=== PATIENT | male | born 1985 | race Caucasian/White ===

== ENCOUNTER 2021-03-02 02:05 | Outpatient (CLI) | payer MEDICAID, SELFPAY ==
[2021-03-03 13:09] LABS: COVID-19 RT-PCR UVMMC Result Negative (Negative)
== END 2021-03-02 02:06 | disposition home or self-care (01) ==
PROVIDERS: PCP Internal Medicine; Visit Provider Family Medicine
DX: Z20.822 Contact with and (suspected) exposure to COVID-19 (principal)
CPT/HCPCS: U0003

== ENCOUNTER 2021-09-16 13:25 | Outpatient (REF) | payer MEDICAID, SELFPAY ==
[2021-09-17 11:22] LABS: COVID-19 RT-PCR UVMMC Result Negative (Negative)
== END 2021-09-16 13:26 | disposition home or self-care (01) ==
LOC: NCHCN 13:25
PROVIDERS: PCP Internal Medicine; Visit Provider Family Medicine
DX: Z20.822 Contact with and (suspected) exposure to COVID-19 (principal)
CPT/HCPCS: U0003

== ENCOUNTER 2021-10-20 13:26 | Outpatient (REF) | payer MEDICAID, SELFPAY ==
[2021-10-21 16:59] LABS: COVID-19 RT-PCR UVMMC Result Negative (Negative)
== END 2021-10-20 13:27 | disposition home or self-care (01) ==
LOC: NCHCN 13:26
PROVIDERS: PCP Internal Medicine; Visit Provider Family Medicine
DX: Z20.822 Contact with and (suspected) exposure to COVID-19 (principal)
CPT/HCPCS: U0003

== ENCOUNTER 2023-11-13 15:10 | Emergency (ER) | payer MEDICAID, SELFPAY ==
[2023-11-13 15:15] VITALS: BP 154/97; PULSE 106; RESP 18; TEMP 36.5; O2SAT 98
--- NOTE | 2023-11-13 15:30 | DI.CT_ITS ---
Exam(s) CT CHEST/ABD/PEL W EXAM: CT CHEST/ABD/PEL W CLINICAL HISTORY: trauma right side pain to ribs and flank. TECHNIQUE: Imaging Protocol: Axial computed tomography images with coronal and sagittal reformatted images were created and reviewed CONTRAST MATERIAL: Intravenous: Omnipaque 350 Contrast volume:100 ml Oral: None COMPARISON: No exams were available for comparison FINDINGS: CHEST: LUNGS: No evidence of lung contusion or pleural effusion nor pneumothorax. No infiltrates. No omino us pulmonary nodules. No findings in the trachea and mainstem bronchi.. MEDIASTINUM: No evidence of sternal fracture or mediastinal hematoma. No hilar nor mediastinal adeno robbin. Partially visualized thyroid unremarkable. CARDIAC: Heart size is normal. There is no pericardial effusion.Thoracic aorta is intact. Normal si ze. No dissection. OSSEOUS: No clavicle fractures. Mild deformity of the lateral aspect of the right 5th rib noted whic h is probably a nonacute nondisplaced rib fracture. No other rib findings. However, there are multi ple right-sided transverse process fractures in the lumbosacral spine involving the right transverse process is of L1, L2, L3, and L4 with all of these being displaced. There are no fractures of the le ft transverse process is nor the pedicles and vertebral bodies nor other pelvic fractures identified. There is no prominent hematoma in this region.. ABDOMEN: No evidence of ascites, bowel wall nor mesenteric hematoma. No free fluid. LIVER: Normal size. No laceration. GALLBLADDER/BILIARY: No obvious gallbladder pathology. CBD is not dilated. PANCREAS: No evidence of pancreatic mass nor dilatation of the pancreatic duct. SPLEEN: Normal size. No laceration. Splenic and portal veins are patent. ADRENALS: There are no significant adrenal masses. KIDNEYS: No evidence of renal lacerations. No evidence of subcapsular hematoma on either side. No c alculi nor hydronephrosis. There is a solitary small benign posterior cortical cyst in the left kidn ey which measures 9 millimeters. This does not require imaging workup.. No cysts evident. ABDOMINAL AORTA: Abdominal aorta and aortoiliac segments are intact-patent. No dissection. No aneur ysms. LYMPH NODES: There is no retroperitoneal nor paraaortic adenopathy. ABDOMINAL WALL: No significant bruising in the subcutaneous fat and no fluid collections evident in t he subcutaneous fat. GI: There is no evidence of bowel obstruction.No evidence of bowel wall hematoma nor mesenteric hemat miley. PELVIS: LYMPH NODES: There is no intrapelvic nor inguinal adenopathy. GI: No evidence of appendicitis.No evidence of sigmoid diverticulitis. URINARY BLADDER: Intact. No extravasation. No intraluminal clots. Not significantly distended. REPRODUCTIVE: Prostate and seminal vesicles unremarkable. OSSEOUS: No hip fractures nor pubic rami fractures. No sacral fractures. SI joints unremarkable. IMPRESSION: 1. The main finding here are multiple displaced fractures of the right transverse processes of the L1 , L2, and L3 vertebral bodies. No large hematoma. No organ injuries. No ascites. No mesenteric he matomas no other acute fractures evident. Called by myself to ER physician. RADIATION DOSE DELIVERED: 1,288.97mGy.cm Total DLP DATA REPOSITORY: All CT scans at this facility are submitted to the National Radiology Data Registry (NRDR) Dose Index Registry (DIR) with the [employer] (A[employer]). RADIATION OPTIMIZATION: All CT scans at this facility use at least one of these dose optimization te chniques: automated exposure control; mA and/or kV adjustment per patient size (includes targeted exa ms where dose is matched to clinical indication); or iterative reconstruction.
--- NOTE | 2023-11-13 15:43 | W.ED.GENAD ---
HPI General Stated Complaint: FlankPain ROBERT: 4 Date/Time Provider Initiated Documentation: 11/13/23 15:23. HPI Narrative: 38-year-old male presents for evaluation of right flank pain. Patient states that he fell last night hitting his right side against bulkhead. He is pending having pain to his right lower ribs and right flank since that time. He denies hitting his head or losing consciousness. He has significant pain with movement and taking a deep breath. Denies any hemoptysis. No echo hematuria. No dysuria increased urinary frequency. No numbness or tingling to his extremities. No weakness in the extremities. He is not on any blood thinners. No chest pain or shortness of breath. No loss of bowel or bladder function. No saddle anesthesia. Related Data Home Medications Medication Instructions Recorded Confirmed cyclobenzaprine 10 mg tablet 10 mg PO TID PRN #30 tabs 11/13/23 oxycodone-acetaminophen 5 mg-325 1 tab PO Q6H PRN #14 tabs 11/13/23 mg tablet (Percocet) Previous Rx's Medication Instructions Recorded cyclobenzaprine 10 mg tablet 10 mg PO TID PRN #30 tabs 11/13/23 oxycodone-acetaminophen 5 mg-325 1 tab PO Q6H PRN #14 tabs 11/13/23 mg tablet (Percocet) Allergies Allergy/AdvReac Type Severity Reaction Status Date / Time No Known Allergies Allergy Unverified 11/13/23 15:18 Review of Systems Narrative: Remainder of review of systems otherwise negative except as noted in HPI x 10. PFSH All Active Problems (Updated 11/13/23 @ 18:43 by Joleen Barr MD) Closed fracture of transverse process of lumbar vertebra (Acute) Acute right flank pain (Acute) Social History Smoking/Tobacco Use Status: Current every day Smoking risk assessment performed?: Yes Alcohol Intake: current Alcohol Intake frequency: holidays/special occasions only Drug use: Never Substance use type: does not use Do you feel safe at home: Yes Do you feel safe in your relationship?: Yes PAWSS Have you Been Recently Intoxicated or Drunk Within the Last 30 days?: No Have you Ever Experienced Previous Episodes of Alcohol Withdrawal?: No Have you ever Experienced Withdrawal Seizures?: No Have you ever Experienced Delirium Tremens(DT)s?: No Have you ever undergone Alcohol Rehabilitation Treatment (i.e, inpt ot outpatient treatment programs)?: No Have you ever Experienced Blackouts?: No Have you ever Combined Alcohol with other Downers within the last 90 days?: No Have you ever Combined Alcohol with any other Substance of Abuse during the last 90 days?: No Positive Blood Alcohol level on Presentation? [PCS.BAL]: No Evidence of Increased Autonomic Activity (i.e. HR>120, tremor, sweating, agitation, nausea)?: No Result: 0 Exam Narrative Exam Narrative: General: non-toxic, no respiratory distress, comfortable HEENT: normocephalic, atraumatic, lids and lashes normal, PERRL, EOMI, anicteric sclera, no conjunctival injection, moist oral mucosa Neck: No vertebral tenderness Card: regular rate and rhythm, S1S2, no murmurs, rubs, or gallops Lungs: good air entry, clear to auscultation bilaterally. no wheezes, rales, rhonchi, or retractions, pain palpation right lower ribs, no crepitus Abd: soft, non-tender, non-distended, normal bowel sounds, no rebound or guarding, no peritoneal signs, right flank pain, right CVAT Musculoskeletal: No vertebral tenderness, GCS 15, speech normal, sensation intact, full range of motion of arms and legs, no tenderness to palpation. no clubbing, cyanosis, or edema Back exam: + Right lumbosacral paraspinal tenderness, no mid-line tenderness, normal strength & sensation, negative SLR's, DTR's 2+ bilaterally Neurologic: appropriate for age, strength normal Psych: alert and oriented Skin: no petechiae, no lesions, warm and dry Course Vital Signs Vital signs: Vital Signs Temperature 36.5 C 11/13/23 15:15 Pulse 106 H 11/13/23 15:15 Respiratory Rate 18 11/13/23 15:15 Blood Pressure 154/97 H 11/13/23 15:15 Pulse Oximetry 98 11/13/23 15:15 Temperature 36.5 C 11/13/23 15:15 Temperature Source Temporal Artery Scan 11/13/23 15:15 Pulse 106 H 11/13/23 15:15 Respiratory Rate 18 11/13/23 15:15 Respiratory Effort Normal, Non-Labored 11/13/23 15:19 Blood Pressure 154/97 H 11/13/23 15:15 Blood Pressure Position Sitting 11/13/23 15:15 Pulse Oximetry 98 11/13/23 15:15 Medical Decision Making 38-year-old male presents for evaluation of right flank pain after fall. On examination he is tender to right lower posterior ribs as well as right flank and CVA. He is neurologically intact. There is no midline tenderness. Laboratory studies unremarkable. UA negative for hematuria. CT chest, abdomen pelvis was obtained. This shows transverse process fracture of L1-L3. I did perform a second neuroexam. Patient is neuro intact. Will start on symptomatic treatment including Flexeril, NSAIDs, and pain medication. He is referred to spine service for follow-up. He understands indications to return. Quality:[facility] Health Related Social Needs: No Data to Display Discharge Plan Disposition Patient Disposition: Home Condition: Stable Discharge Details Clinical Impression: Acute right flank pain, Closed fracture of transverse process of lumbar vertebra Primary Care Provider: Bowen Pereira ED Provider: Joleen Barr Home Meds and New Rx's Prescriptions: New cyclobenzaprine 10 mg tablet 10 mg PO TID PRNQty: 30 0RF oxycodone-acetaminophen [Percocet] 5-325 mg tablet 1 tab PO Q6H PRNQty: 14 0RF Discharge Instructions Instructions: Transverse Process Fracture (ED) Additional Instructions: Take Tylenol or Motrin as needed for pain. Take Percocet for severe pain. Take muscle relaxant. You should follow-up with emergency management program specialist. A referral has been placed. Referrals: Bowen Pereira MD [Primary Care Provider] - Discharge Data Discharge Physician: Joleen Barr
[2023-11-13 16:07] LABS: Absolute Basophil Count 0.07 10^3/uL (0.0-0.2); Absolute Eosinophil Count 0.17 10^3/uL (0.0-0.7); Absolute Lymphocyte Count 1.26 10^3/uL (1.2-3.4); Absolute Neutrophil Count 10.27 10^3/uL (1.2-6.7); Basophils % 0.5; Eosinophils % 1.3; HCT 47.2 % (40.0-50.0); HGB 16.8 g/dL (13.5-17.5); Immature Grans % 0.7; Lymphocytes % 9.4; MCH 31.9 pg (27.0-33.0); MCHC 35.6 % (32.0-36.0); MCV 90 fL (80-95); MPV 10.1 fL (8.0-11.0); Monocytes % 11.2; Neutrophils % 76.9; Platelet Count 297 10^3/uL (130-400); RBC 5.27 10^6/uL (4.36-5.78); RDW 11.5 % (11.8-14.1); RDW-SD 37.6 fL; WBC 13.36 10^3/uL (4.4-10.8)
[2023-11-13 16:21] LABS: ALT 28 U/L (16-63); AST 26 U/L (15-37); Albumin 3.9 g/dL (3.4-5.0); Alkaline Phosphatase 85 U/L (46-116); Anion Gap 12.2 mmol/L (3-11); BUN 13 mg/dL (7-18); Bilirubin, Total 0.4 mg/dL (0.2-1.0); CO2 23.8 mmol/L (21.0-32.0); CREATININE 1.2 mg/dL (0.70-1.30); Calcium 8.7 mg/dL (8.5-10.1); Chloride 102 mmol/L (98-107); Estimated GFR 78.89 (mL/min/1.73m2); Glucose 101 mg/dL (74-106); Potassium 4.3 mmol/L (3.5-5.1); Sodium 138 mmol/L (136-145); Total Protein 7.9 g/dL (6.4-8.2)
[2023-11-13] MEDS: Normal Saline - Diluent 50 ML VIAL IJ (16:48)
[2023-11-13] MEDS: Omnipaque 350 MG/ML 100 ML BTL IJ (16:50)
[2023-11-13 17:49] VITALS: BP 154/97; PULSE 106; RESP 18; TEMP 36.5; O2SAT 98
[2023-11-13 18:10] LABS: Bilirubin Negative (Negative); Blood Negative (Negative); Clarity Clear (Clear); Glucose Negative (Negative); Ketones Negative (Negative); Leukocyte Esterase Negative (Negative); Nitrite Negative (Negative); Specific Gravity 1.015 (1.005-1.025); Urobilinogen 0.2 mg/dL (Up to 0.2)
--- NOTE | 2023-11-13 18:40 | NUR.NOTE ---
Referral given to Care Management to Spine Team [facility] [place] transverse processes L1-3, within 1 week. Nursing Note:
[2023-11-13] MEDS: Ketorolac 30 MG/ML VIAL IVP (18:42)
[2023-11-13] MEDS: Cyclobenzaprine 10 MG TAB, 3 TABS/BTL PO (18:45)
[2023-11-13 18:54] VITALS: BP 156/71; PULSE 74; TEMP 36.6; O2SAT 99
[2023-11-13 19:28] VITALS: BP 156/71; PULSE 74; RESP 18; O2SAT 99
== END 2023-11-13 19:28 | disposition home or self-care (01) ==
PROVIDERS: Emergency Provider Emergency Medicine Emergency Medical Services; PCP Internal Medicine
DX: R10.31 Right lower quadrant pain (principal); S32.009A Unspecified fracture of unspecified lumbar vertebra, initial encounter for closed fracture; I10 Essential (primary) hypertension; W10.8XXA Fall (on) (from) other stairs and steps, initial encounter
CPT/HCPCS: 74177; 80053; 96374; 99285; 71260; 81003; 85025; 99283; J1885; J3490

== ENCOUNTER 2025-03-27 09:07 | Outpatient (REF) | payer OTHER, SELFPAY ==
[2025-03-27 16:09] LABS: Anion Gap 8.1 mmol/L (3-11); BUN 10 mg/dL (7-18); CO2 29.9 mmol/L (21.0-32.0); CREATININE 1.1 mg/dL (0.70-1.30); Calculated LDL 96 mg/dL (<100); Chloride 100 mmol/L (98-107); Cholesterol 173 mg/dL (<200); Estimated GFR 87.03 (mL/min/1.73m2); Glucose 102 mg/dL (74-106); HDL Cholesterol 51 mg/dL (>or=40); Potassium 4.4 mmol/L (3.5-5.1); Sodium 138 mmol/L (136-145); Triglyceride 131 mg/dL (<150)
== END 2025-03-27 09:08 | disposition home or self-care (01) ==
LOC: NCHCN 09:07
PROVIDERS: PCP Family Medicine; Visit Provider Family Medicine
DX: I10 Essential (primary) hypertension (principal)
CPT/HCPCS: 80048; 80061

== ENCOUNTER 2025-08-03 10:22 | Emergency (ER) | payer OTHER, SELFPAY ==
[2025-08-03 10:29] VITALS: BP 129/92; PULSE 76; RESP 14; TEMP 36.9; O2SAT 95
[2025-08-03 11:20] VITALS: BP 129/92; PULSE 76; RESP 14; TEMP 36.9; O2SAT 95
--- NOTE | 2025-08-03 11:29 | W.ED.GENAD ---
Discharge Plan Disposition Patient Disposition: Home Condition: Good Discharge Details Clinical Impression: Abrasion of cornea, left Primary Care Provider: Bell Zarate ED Provider: Anel Tirado Home Meds and New Rx's Prescriptions: New erythromycin 5 mg/gram (0.5 %) ointment 1 applic ophthalmic (eye) QID 5 Days Qty: 3.5 0RF No Action cyclobenzaprine 10 mg tablet 10 mg PO TID PRNQty: 30 0RF oxycodone-acetaminophen [Percocet] 5-325 mg tablet 1 tab PO Q6H PRNQty: 14 0RF lisinopril-hydrochlorothiazide 10-12.5 mg tablet 1 tab PO DAILY Patient Comments: TAKE ONE TABLET BY MOUTH EVERY MORNING Discharge Instructions Instructions: Corneal Abrasion ED Additional Instructions: I encourage you to follow-up with Mila webster if you not feeling significantly better by tomorrow. Please use the erythromycin ointment as prescribed. Apply a 1 cm ribbon to your eye 4 times a day for the full 5-day course. For discomfort I recommend that you apply cool compresses and avoid rubbing at your eye. Return to emergency care if you develop new severe eye pain, vision loss, severe headaches, nausea/vomiting, or if you are very worried and is rechecked again immediately Referrals: [facility] [OTHER, Eye Care] Discharge Data Discharge Date/Time-TO BE ENTERED AT DEPARTURE: 08/03/25 11:55 HPI General Date/Time Provider Initiated Documentation: 08/03/25 10:35. HPI Narrative: Robby is a 40-year-old male who presents to the emergency department today for evaluation of left eye redness/pain since yesterday. On 08/02/2025, while reveles hogging without eye protection, he believes something entered his eye. Despite flushing, discomfort persisted overnight. Describes pain as severe and accompanied by mild eyelid swelling, eye redness and blurry vision/tearing. Denies associated autophobia, fever/chills, headaches, vision loss, nausea/vomiting. Does not wear contacts. No recent chemical exposure. No history of eye problems or eye surgeries on the side. Does not currently have a an eye doctor he can follow-up with, his previous one retired. Related Data Home Medications ?Medication ?Instructions ?Recorded ?Confirmed cyclobenzaprine 10 mg tablet 10 mg PO TID PRN #30 tabs 11/13/23 08/03/25 oxycodone-acetaminophen 5 mg-325 1 tab PO Q6H PRN #14 tabs 11/13/23 08/03/25 mg tablet (Percocet) erythromycin 5 mg/gram (0.5 %) eye 1 applic ophthalmic (eye) QID 5 08/03/25 ointment days #3.5 grams lisinopril 10 1 tab PO DAILY 08/03/25 08/03/25 mg-hydrochlorothiazide 12.5 mg tablet Previous Rx's ?Medication ?Instructions ?Recorded cyclobenzaprine 10 mg tablet 10 mg PO TID PRN #30 tabs 11/13/23 oxycodone-acetaminophen 5 mg-325 1 tab PO Q6H PRN #14 tabs 11/13/23 mg tablet (Percocet) erythromycin 5 mg/gram (0.5 %) eye 1 applic ophthalmic (eye) QID 5 08/03/25 ointment days #3.5 grams Allergies Allergy/AdvReac Type Severity Reaction Status Date / Time No Known Allergies Allergy Unverified 08/03/25 10:36 General Stated Complaint: EyeProblem ROBERT: 3 Exam Narrative Exam Narrative: General Appearance: Normal. Patient is alert and oriented, no acute distress Vital signs: Within normal limits. HEENT: Left upper eyelid slightly swollen. Conjunctival inflammation/injection noted, diffuse scleral injection as well. No foreign bodies visualized under eyelids with eversion. No ciliary flush. PERRL, EOMs intact. Fluorescein stain performed, negative Gino sign. Linear corneal abrasion noted. Skin: Warm and dry, no rash. Psychiatric: Normal. Eyes Eyes/upper lids images:  1. corneal abrasion Course Vital Signs Vital signs: Vital Signs Temperature 36.9 C 08/03/25 10: Pulse 76 08/03/25 10:29 Respiratory Rate 14 08/03/25 10:29 Blood Pressure 129/92 H 08/03/25 10:29 Pulse Oximetry 95 08/03/25 10:29 Temperature 36.9 C 08/03/25 11:20 Temperature Source Oral 08/03/25 11:20 Pulse 76 08/03/25 11:20 Respiratory Rate 14 08/03/25 11:20 Blood Pressure 129/92 H 08/03/25 11:20 Blood Pressure Position Sitting 08/03/25 11:20 Pulse Oximetry 95 08/03/25 11:20 Pain Level 8 08/03/25 11:20 Medical Decision Making 40-year-old male with left eye pain after bushhogging without eye protection. Pain started 08/02/2025, worsened with eye movement. No fever, chills, or headaches. No red flags concerning for serious etiology of right eye such as acute angle-closure glaucoma, orbital cellulitis, or significant trauma/open globe requiring emergent diagnostic imaging at this time. Presentation consistent with corneal abrasion visualized on fluorescein stain. Erythromycin ointment initiated in the emergency department today. Recommend cool compresses avoidance of scratching eye. [facility], recommend close follow-up for further evaluation/management if symptoms do not significantly improve. Reviewed discharge instructions with patient, including red flags indicate need for return to emergency care Patient consented to the use of [facility] PFSH All Active Problems (Updated 08/03/25 @ 11:41 by Anel Garvey) Abrasion of cornea, left (Acute) Social History Smoking/Tobacco Use Status: Current every day Tobacco Type: cigarettes Smoking risk assessment performed?: Yes Alcohol Intake: current Alcohol Intake frequency: a few times a week Alcohol type: beer Drug use: Never Substance use type: does not use Do you feel safe at home: Yes Do you feel safe in your relationship?: Yes PAWSS Have you Been Recently Intoxicated or Drunk Within the Last 30 days?: No Have you Ever Experienced Previous Episodes of Alcohol Withdrawal?: No Have you ever Experienced Withdrawal Seizures?: No Have you ever Experienced Delirium Tremens(DT)s?: No Have you ever undergone Alcohol Rehabilitation Treatment (i.e, inpt ot outpatient treatment programs)?: No Have you ever Experienced Blackouts?: No Have you ever Combined Alcohol with other Downers within the last 90 days?: No Have you ever Combined Alcohol with any other Substance of Abuse during the last 90 days?: No Positive Blood Alcohol level on Presentation? [PCS.BAL]: No Evidence of Increased Autonomic Activity (i.e. HR>120, tremor, sweating, agitation, nausea)?: No Result: 0
[2025-08-03] MEDS: Erythromycin Ophth Oint 3.5 GM TUBE OU (11:47)
[2025-08-03] MEDS: Tetracaine 0.5% 4 ML BTL OP (11:48)
[2025-08-03] MEDS: Fluorescein STRIPS 100/BOX 1 MG OP (11:49)
== END 2025-08-03 11:55 | disposition home or self-care (01) ==
LOC: ER 11:59
PROVIDERS: Emergency Provider Nurse Practitioner Family; PCP Family Medicine
DX: S05.02XA Injury of conjunctiva and corneal abrasion without foreign body, left eye, initial encounter (principal); X58.XXXA Exposure to other specified factors, initial encounter
CPT/HCPCS: 99283 ×2